=== PATIENT | female | born 1975 | race Caucasian/White ===

== ENCOUNTER → 2017-02-14 | Outpatient (CLI) | payer BC | END | disposition home or self-care (01) | LOC: C.PAPS 14:33 | PROVIDERS: ATTEND Obstetrics & Gynecology | DX: Z01.419 Encounter for gynecological examination (general) (routine) without abnormal findings (principal) ==

== ENCOUNTER → 2017-03-17 | Outpatient (CLI) | payer BC ==
--- NOTE | 2017-03-18 13:15 | MAMMOGRAPHY REPORT ---
BILATERAL DIGITAL SCREENING MAMMOGRAM TOMOSYNTHESIS WITH CAD: 03/17/2017 CLINICAL HISTORY: Routine screening. Patient has no complaints. TECHNIQUE: Breast tomosynthesis in addition to standard 2D mammography was performed. Current study was also evaluated with a Computer Aided Detection (CAD) system. COMPARISON: Comparison is made to exams dated: 03/13/2016 mammogram, 03/09/2015 mammogram, and 006 mammogram - [facility]. BREAST COMPOSITION: The tissue of both breasts is extremely dense, which lowers the sensitivity of mammography. FINDINGS: The parenchymal pattern is unchanged. There is a stable benign appearing calcification a nteriorly within the left breast. No developing mass, architectural distortion or cluster of suspic ious microcalcifications is seen in either breast. IMPRESSION: ACR BI-RADS CATEGORY 2: BENIGN There is no mammographic evidence of malignancy. A 1 year screening mammogram is recommended. The p atient will receive written notification of the results. Approximately 10% of breast cancers are not detected with mammography. A negative mammographic repor t should not delay biopsy if a clinically suggestive mass is present. Suki Damon M.D. ay/:03/17/2017 17:08:21 Colorist Photography: [address], [facility] letter sent: Normal 1/2 BI-RADS Code: ACR BI-RADS Category 2: Benign
== END | disposition home or self-care (01) ==
LOC: C.MAMM 12:10
PROVIDERS: ATTEND Obstetrics & Gynecology
DX: Z12.31 Encounter for screening mammogram for malignant neoplasm of breast (principal)

== ENCOUNTER → 2018-02-16 | Outpatient (CLI) | payer OTHER | END | disposition home or self-care (01) | LOC: C.PAPS 11:24 | PROVIDERS: ATTEND Obstetrics & Gynecology | DX: Z01.419 Encounter for gynecological examination (general) (routine) without abnormal findings (principal) ==

== ENCOUNTER → 2018-03-18 | Outpatient (CLI) | payer OTHER ==
--- NOTE | 2018-03-18 15:24 | MAMMOGRAPHY REPORT ---
BILATERAL DIGITAL SCREENING MAMMOGRAM TOMOSYNTHESIS WITH CAD: 03/18/2018 CLINICAL HISTORY: Routine screening. Patient has no complaints. TECHNIQUE: Breast tomosynthesis in addition to standard 2D mammography was performed. Current study was also evaluated with a Computer Aided Detection (CAD) system. COMPARISON: Comparison is made to exams dated: 03/17/2017 mammogram, 03/13/2016 mammogram, 03/09/2015 ma mmogram, and 09/01/2006 mammogram - [facility]. BREAST COMPOSITION: The tissue of both breasts is extremely dense, which lowers the sensitivity of m ammography. FINDINGS: The parenchymal pattern is unchanged. No developing mass, architectural distortion or clus ter of suspicious microcalcifications is seen in either breast. Stable bilateral mammograms, without IMPRESSION: ACR BI-RADS CATEGORY 2: BENIGN 1. Stable bilateral mammograms, without mammographic evidence of malignancy. A 1 year screening mamm ogram is recommended. 2. The patient has extremely dense breasts and a family history of breast cancer. Based on personal risk factors, if her lifetime risk for developing breast cancer is at least 20%, she would qualify f or screening breast MRI, which is more sensitive than screening breast ultrasound. The patient will receive written notification of the results. Approximately 10% of breast cancers are not detected with mammography. A negative mammographic report should not delay biopsy if a clinically suggestive mass is present. Suki Damon M.D. ay/:03/18/2018 08:49:21 Dyeing Machine Back Tender: Briseida TABARES)(Jorge), [facility] letter sent: Normal 1/2 BI-RADS Code: ACR BI-RADS Category 2: Benign
== END | disposition home or self-care (01) ==
LOC: C.MAMM 08:04
PROVIDERS: ATTEND Internal Medicine
DX: Z12.31 Encounter for screening mammogram for malignant neoplasm of breast (principal); Z80.3 Family history of malignant neoplasm of breast

== ENCOUNTER → 2018-05-27 | Outpatient (CLI) | payer OTHER ==
[2018-05-27 14:18] LABS: ALBUMIN 3.7 gm/dl (3.4-5.0); ALKALINE PHOSPHATASE 61 U/L (45-117); ALT/SGPT 23 U/L (12-78); AST/SGOT 19 U/L (15-37); TOTAL PROTEIN 7.4 gm/dl (6.4-8.2)
[2018-05-27 14:37] LABS: HEMATOCRIT 38.8 % (37-47); HEMOGLOBIN 12.9 g/dL (12.0-16.0); MEAN CELL VOLUME 82.7 fL (80-100); MEAN CORPUSCULAR HEMOGLOBIN 27.5 pg (25-34); MEAN CORPUSCULAR HGB CONC 33.2 g/dl (32-36); MEAN PLATELET VOLUME 12.1 fL (7.4-10.4); PLATELET COUNT 216 K/uL (130-400); RED CELL DISTRIBUTION WIDTH CV 12.6 % (11.5-14.5); RED CELL DISTRIBUTION WIDTH SD 37.8 fL (36.4-46.3); WHITE BLOOD COUNT 5.46 K/uL (4.8-10.8)
== END | disposition home or self-care (01) ==
LOC: C.LAB 10:55
PROVIDERS: ATTEND Internal Medicine
DX: E05.90 Thyrotoxicosis, unspecified without thyrotoxic crisis or storm (principal); R94.5 Abnormal results of liver function studies

== ENCOUNTER → 2018-06-01 | Outpatient (CLI) | payer OTHER ==
[2018-06-04 19:27] LABS: TSI 502 % baseline (<140)
== END | disposition home or self-care (01) ==
LOC: C.LAB 10:11
PROVIDERS: ATTEND Internal Medicine Endocrinology, Diabetes & Metabolism
DX: E05.00 Thyrotoxicosis with diffuse goiter without thyrotoxic crisis or storm (principal)

== ENCOUNTER → 2018-06-22 | Outpatient (CLI) | payer OTHER | END | disposition home or self-care (01) | LOC: C.LAB 12:15 | PROVIDERS: ATTEND Internal Medicine Endocrinology, Diabetes & Metabolism | DX: E05.00 Thyrotoxicosis with diffuse goiter without thyrotoxic crisis or storm (principal) ==

== ENCOUNTER 2024-06-29 15:33 | Inpatient (IN) ==
[2024-06-29 15:47] VITALS: O2SAT 100
--- NOTE | 2024-06-29 16:06 | Emergency Department Note ---
Impression & Plan Palpitations, Hematuria, Anxiety ED Provider Note NAME: YENNI ESCALERA AGE: 49 SEX: F : 1975 ARRIVES VIA: Walk-In INFORMANT: Patient, Mother ED PROVIDER(S): Sarath Sifuentes MD CHIEF COMPLAINT: Anxiety, outpatient referral MEDICAL DECISION MAKING: Patient presents due to concern for mental wellness concern associated anxiety. Blood work was obtained. The patient did receive Ativan p.o. Patient's blood work shows a normal white count hemoglobin and platelet count kidney function is unremarkable. Mild hyponatremia 135. The patient's urinalysis does not show evidence of obvious infection. Blood is noted. Patient may follow-up for this as an outpatient with her PCP and/or urology. Patient was he medically cleared was seen and evaluated by psych oil field caser and referrals were made. The patient was accepted for inpatient treatment at 3 S. Discussion w/ other healthcare providers: ED case management Prior /Outside records reviewed: None Differential diagnosis: Mood disorder, infection, hypoglycemia, electrolyte abnormalities, dehydration, medication side effect among others were considered. Diagnostics, as interpreted by me: ECG: None Medical decision rules: None Imaging studies: None HPI: Patient presents due to concern for worsening anxiety. The patient states that back in March the patient started having some neck and back discomfort with associated sensory issues and this took a fair amount of time in order to obtain imaging and follow-up with orthopedics. The patient was diagnosed with disc bulge in the neck as well as in the lower back and the patient has been following with PT. Patient states that during these 9 weeks of issues and waiting for her imaging studies the patient continue to worry worry about more complicated problems. Patient states that now it is so severe that she cannot even work. 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 Patient states that she has been increasingly anxious. The patient had been taking some BuSpar twice daily and recently increased her dose to 10 mg 3 times daily and then taking Ativan 0.5 twice daily as needed. Patient states that on the Ativan seems to work. The patient was started on Zoloft 25 mg and took this the last 2 days beginning on Friday but it is not agreed with her. Patient denies any chest pains or shortness of breath. The patient does have occasional palpitations and thought maybe she had a panic attack this morning. Patient did call her PCPs office and was referred here for further evaluation and treatment. Patient denies any SI HI or AVH. Sleep and appetite have been poor. Patient denies any alcohol tobacco or drug use. Patient does not formally follow with psychiatrist or therapist at this time. PAST MEDICAL HISTORY: See Below PAST SURGICAL HISTORY: See Below SOCIAL HISTORY: See Below HOME MEDICATIONS: See Below ALLERGIES: See Below VITALS: See Below PHYSICAL EXAMINATION: GENERAL: NAD, non-toxic. Wearing glasses. EYE EXAM: Normal conjunctiva. PERRL, no anisocoria and EOM's grossly intact w/o pain. OROPHARYNX: Moist mucus membranes, grossly normal dentition. NECK: Trachea midline, no stridor. Supple, no nuchal rigidity, no adenopathy, non-tender. No signs of meningismus. FROM of the neck with good chin to chest and neck extension. LUNGS: Clear to auscultation. Normal chest wall mechanics. HEART: NSR, no MRG. ABDOMEN: Abdomen soft, non-tender, no masses, no rebound or guarding. BACK: No CVA TTP. SKIN: No rashes and no bruising. UPPER EXTREMITIES: Upper extremities are grossly normal. LOWER EXTREMITIES: Grossly normal, no edema. NEURO EXAM: A&O x3, cranial nerves II-XII grossly intact, normal speech, moves all 4 extremities. Psych: Denies SI HI or AVH. Anxious and tearful. Past Med/Surg History Problem List (Updated 06/30/24 @ 00:14 by Sarath Sifuentes MD) Anxiety (Acute) Hematuria (Acute) Low back pain Numbness and tingling of right arm Neck pain Vitamin D deficiency Chronic kidney disease Palpitations (Acute) Abnormal echocardiogram Colon cancer screening Encounter for pre-operative examination Medical History Anemia Temporomandibular joint disorder hx of; had a bite block but no longer uses History of anesthesia reaction had difficulty waking after wisdom tooth removal and woke up with a sweat Hyperthyroidism hx of; pt states she is no longer on medication Surgical History H/O wisdom tooth extraction Hx of tonsillectomy and adenoidectomy H/O excision of ganglion cyst x2 H/O breast biopsy fine needle on left 2006--benign Family History Mother Osteoporosis Breast cancer GERD (gastroesophageal reflux disease) Thyroid disease Grandmother (Maternal) Dementia Father Hypercholesterolemia Hypertension Thyroid disease Uncle Thyroid disease Other No family history of adverse response to anesthesia Social History Smoking Status: Never smoker Second Hand Exposure: No; Do You Dip or Chew Tobacco: No; Hx Alcohol Use: No Hx Substance Use: No Preferred Language: Upper Sorbian Communication Ability: Effective Clarification Operator Required: No Beliefs That Will Affect Care: None marital status: Single Current Living Situation: Alone Feels Safe at Home: Yes Gender Identity: Female Assistive Devices: Glasses Allergies Allergies Allergy/AdvReac Type Severity Reaction Status Date / Time cefaclor [From Ceclor] Allergy Intermediate Hives Verified 02/03/24 14:12 azithromycin Allergy Mild Rash Verified 02/03/24 14:12 erythromycin base Allergy Mild Rash Verified 02/03/24 14:12 minocycline Allergy Mild Rash Verified 02/03/24 14:12 Penicillins Allergy Mild Rash Verified 02/03/24 14:12 multiple vitamin AdvReac Mild Gastrointestinal Uncoded 02/03/24 14:12 Upset contrast dye AdvReac Unknown Itching Uncoded 06/29/24 17:11 Home Meds Home Medications Medication Instructions Recorded Confirmed cholecalciferol (vitamin D3) 25 25 mcg PO QAM 01/21/23 06/29/24 mcg (1,000 unit) tablet (Vitamin D3) ferrous sulfate 325 mg (65 mg 325 mg PO QPM 01/21/23 06/29/24 iron) tablet (Iron (ferrous sulfate)) ibuprofen 200 mg tablet (Advil) 200 mg PO Q6H PRN pain 05/03/24 06/29/24 buspirone 10 mg PO TID 06/29/24 06/29/24 lorazepam 0.5 mg tablet 0.5 mg PO BID PRN Anxiety 06/29/24 06/29/24 Previous Rx's Medication Instructions Recorded pantoprazole 40 mg tablet,delayed 40 mg PO DAILY #14 tabs 05/18/24 release (Protonix) hydroxyzine HCl 25 mg tablet 25 mg PO Q6H PRN anxiety #10 tabs 05/26/24 Results & Data (ED) Vital Signs Vital Signs - 24 hr 06/29/24 15:42 06/29/24 16:08 06/29/24 18:50 Temperature 36.9 C Temperature Source Temporal Artery Scan Pulse Rate 87 Pulse Rate [Finger] 76 64 Pulse Rhythm Regular Pulse Strength Normal Respiratory Rate 20 18 18 Respiratory Effort / Characteristics Non-Labored Spontaneous Respiratory Depth Normal Blood Pressure 170/85 H Blood Pressure [Right Arm] 145/99 H 142/90 H Blood Pressure Mean 113 Blood Pressure Mean [Right Arm] 114 107 Pulse Oximetry 100 100 100 Oxygen Delivery Method Room Air Room Air Room Air Sepsis Recent Fever Within 48 Hours No Sepsis New/Unexplained Change in Mental Status No Sepsis Action Taken by Nursing No Action Required Home Medications Current Medication List: was personally reviewed by me Laboratory Data Attestation: I reviewed the patient's lab results. 06/29/24 16:00 06/29/24 16:00 Lab Results 06/29/24 Range/Units 16:00 WBC 5.55 (4.8-10.8) K/ul RBC 4.83 (4.20-5.40) M/uL Hgb 13.8 (12.0-16.0) g/dl Hct 41.7 (37.0-47.0) % MCV 86.3 (80.0-100.0) fL MCH 28.6 (25.0-34.0) pg MCHC 33.1 (32.0-36.0) g/dL RDW Std Deviation 36.2 L (36.4-46.3) fL RDW Coeff of Lore 11.4 L (11.5-14.5) % Plt Count 228 (130-400) K/uL MPV 12.6 H (9.4-12.4) fL Immature Gran % (Auto) 0.2 % Neut % (Auto) 76.9 % Lymph % (Auto) 15.9 % [place] % (Auto) 6.3 % Eos % (Auto) 0.2 % Baso % (Auto) 0.5 % Neut # (Auto) 4.27 (1.40-6.50) K/uL Lymph # (Auto) 0.88 L (1.20-3.40) K/uL [place] # (Auto) 0.35 (0.11-0.59) K/uL Eos # (Auto) 0.01 (0.00-0.50) K/uL Baso # (Auto) 0.03 (0.00-0.20) K/uL Immature Gran # (Auto) 0.01 (0.01-0.20) K/uL Sodium 135 L (136-145) mmol/L Potassium 3.6 (3.5-5.1) mmol/L Chloride 100 (98-107) mmol/L Carbon Dioxide 27 (21-32) mmol/L Anion Gap 8 (3-11) BUN 15 (6-23) mg/dl Creatinine 1.03 (0.6-1.2) mg/dl Est Cr Clr Drug Dosing 51.0 ml/min Est GFR ( Amer) 73.9 ml/min Est GFR (Non-Af Amer) 63.8 ml/min BUN/Creatinine Ratio 14.6 (10-20) Glucose 131 H (70-99(Fasting)) mg/dl Calcium 9.3 (8.6-10.3) mg/dl Total Bilirubin 0.7 (0.2-1.0) mg/dl AST 17 (13-39) U/L ALT 11 (7-52) U/L Alkaline Phosphatase 46 (34-104) U/L Total Protein 7.6 (6.0-8.3) gm/dl Albumin 4.8 (3.4-5.0) gm/dl Globulin 2.8 (2.5-4.0) gm/dl Albumin/Globulin Ratio 1.7 (0.9-2) TSH 1.486 (0.300-4.500) uIu/ml Salicylates < 3.0 L (3.0-30) mg/dl Acetaminophen < 3 L (10-30) ug/ml Ethyl Alcohol mg/dL < 10.0 (<10.0) mg/dl Administered Medications Buspirone HCl (Buspirone 5 Mg Tab) 10 mg PO TID TATUM Stop: 07/29/24 20:59 Last Admin: 06/29/24 21:02 Dose: 10 mg Documented By: VDS Lorazepam (Lorazepam 1 Mg Tab) 1 mg PO BID PRN PRN Reason: Anxiety Stop: 07/29/24 20:16 Last Admin: 06/29/24 21:05 Dose: 1 mg Documented By: VDS Discontinued Medications Lorazepam (Lorazepam 0.5 Mg Tab) 0.5 mg PO NOW STA Stop: 06/29/24 16:28 Last Admin: 06/29/24 16:41 Dose: 0.5 mg Documented By: KV Discharge Plan Visit Data Chief Complaint: Mental Health Evaluation Stated Complaint: MENTAL HEALTH EVAL ED Provider: Sarath Sifuentes Discharge Problem: Palpitations, Hematuria, Anxiety Patient Disposition: Admitted As Inpatient Discharge Instructions Interventions: ED Discharge Assessment Last Done: 06/29/24 20:04 Discharge Problem: Hematuria Qualifiers: Hematuria type: unspecified type Qualified Code(s): R31.9 - Hematuria, unspecified
[2024-06-29] MEDS: LORazepam 0.5 MG TAB PO STA (16:41)
[2024-06-29 17:01] LABS: Basophils # (auto) 0.03 K/uL (0.00-0.20); Basophils % (auto) 0.5 %; Eosinophils # (auto) 0.01 K/uL (0.00-0.50); Eosinophils % (auto) 0.2 %; Hematocrit (blood only) 41.7 % (37.0-47.0); Hemoglobin 13.8 g/dl (12.0-16.0); Immature Granulocytes # (auto) 0.01 K/uL (0.01-0.20); Immature Granulocytes % (auto) 0.2 %; Lymphocytes # (auto) 0.88 K/uL (1.20-3.40); Lymphocytes % (auto) 15.9 %; Mean Corpuscular Hemoglobin 28.6 pg (25.0-34.0); Mean Corpuscular Hgb Conc 33.1 g/dL (32.0-36.0); Mean Corpuscular Volume 86.3 fL (80.0-100.0); Mean Platelet Volume 12.6 fL (9.4-12.4); Monocytes # (auto) 0.35 K/uL (0.11-0.59); Monocytes % (auto) 6.3 %; Neutrophils # (auto) 4.27 K/uL (1.40-6.50); Neutrophils % (auto) 76.9 %; Platelet Count 228 K/uL (130-400); RDW Coefficient of Variation 11.4 % (11.5-14.5); RDW Standard Deviation 36.2 fL (36.4-46.3); Red Blood Count 4.83 M/uL (4.20-5.40); White Blood Count 5.55 K/ul (4.8-10.8)
[2024-06-29 17:02] LABS: Appearance Urine Clear (Clear); Bacteria Urine Automated None Seen (None Seen); Bilirubin Urine Negative (Negative); Blood Urine 3+ (Negative); Cast Urine Automated 0-2 /lpf (0-2); Color Urine Yellow; Epithelial Cell Urine Auto 0-2 /hpf (0-2); Glucose Urine UA Negative (Negative); Ketones Urine Negative (Negative); Leukocyte Esterase Urine Trace (Negative); Nitrite Urine Negative (Negative); Pregnancy Test, Urine Negative (Negative); Protein Urine Trace (Negative); RBC Urine Automated >20 /hpf (0-2); Specific Gravity Urine 1.011 (1.000-1.030); Urobilinogen Urine Negative (Negative); WBC Urine Automated 0-5 /hpf (0-5); pH Urine 5.5 (4.5-7.5)
[2024-06-29 17:11] LABS: Albumin Globulin Ratio 1.7 (0.9-2); Albumin Level 4.8 gm/dl (3.4-5.0); BUN Creatinine Ratio 14.6 (10-20); Bilirubin,Total 0.7 mg/dl (0.2-1.0); Calcium 9.3 mg/dl (8.6-10.3); Est GFR (African American) 73.9 ml/min; Est GFR (Non-African American) 63.8 ml/min; Globulin 2.8 gm/dl (2.5-4.0); Potassium 3.6 mmol/L (3.5-5.1); Total Protein 7.6 gm/dl (6.0-8.3)
[2024-06-29 17:25] LABS: Thyroid Stimulating Hormone 1.486 uIu/ml (0.300-4.500)
[2024-06-29 17:38] LABS: Acetaminophen < 3 ug/ml (10-30); Salicylate < 3.0 mg/dl (3.0-30)
[2024-06-29 17:54] LABS: Amphetamines+Metham, Urine Neg (Neg); Barbiturates, Urine Neg (Neg); Benzodiazepine, Urine Neg (Neg); Cocaine, Urine Neg (Neg); Fentanyl, Urine Neg (Neg); MDMA (Ecstacy), Urine Neg (Neg); Marijuana, Urine Neg (Neg); Methadone, Urine Neg (Neg); Opiate, Urine Neg (Neg); Phencyclidine, Urine Neg (Neg)
[2024-06-29] MEDS ORDERED: hydrOXYzine HCl 25 MG TAB PO PRN ×2 (20:14)
[2024-06-29] MEDS ORDERED: SODIUM CHLORIDE 0.65% NA SOLN 45 ML (OCEAN) PRN (20:14)
[2024-06-29] MEDS ORDERED: BISMUTH SUBSALICYLATE LIQD 236 ML PO PRN (20:14)
[2024-06-29] MEDS ORDERED: ACETAMINOPHEN 325 MG TAB PO PRN (20:14)
[2024-06-29] MEDS ORDERED: ALUMINUM/MAGNESIUM SUSP 30 ML UDC PO PRN (20:14)
[2024-06-29] MEDS ORDERED: MAGNESIUM HYDROXIDE SUSP 30 ML UDC PO PRN (20:14)
[2024-06-29] MEDS: busPIRone 5 MG TAB PO SCH (21:02)
[2024-06-29] MEDS: LORazepam 1 MG TAB PO PRN (21:05)
[2024-06-30 06:49] VITALS: RESP 16
--- OUTSIDE RECORDS SUMMARY | 2024-06-30 07:04 | External Medical Summary | Summary of Care ---
Author Name Unknown Organization [facility] Address [address] [place] [address] Phone [phone] Care Team Providers Care Rn Outpatient Surgery Name Role Phone Wilda St MD Primary Care Provider + Reason for Visit * Reason Onset Date Comments Advice 05/31/2024 Encounter Details Date Type Department Care Team (Late st Contact Info) Description 05/31/2024 Telephone General Internal Medicine [facility] [address] [place] [id number] MD [address] [place] [address] Advice Allergies Active Allergy Reactions Criticality Noted Date Comments Azithromycin Nausea/vomiting 09/05/2015 z-pack Cefaclor Hives 09/05/2015 Dust 09/05/2015 Mold, ragweed, pollen Erythromycin 09/05/2015 unsure Minocycline Other (Please comment) 09/05/2015 Per patient all "cyclines"; caused elevated liver enzymes, fever, eye problems Multivitamins Nausea/vomiting 09/05/2015 Penicillins Hives 09/05/2015 documented as of this encounter (statuses as of 06/14/2024) Medications Medication Sig Dispensed Refills Start Date End Date Status Cholecalciferol (VITAMIN D) 1000 UNIT Capsule Take 1 Capsule by mouth in the morning. 30 Cap 11 09/05/2015 Active hydrOXYzine HCl 25 MG Oral Tablet 1 Tablet. 05/26/2024 Active ALPRAZolam 0.5 MG Oral Tablet (xaNAX) 1 Tablet. 05/05/2024 Active busPIRone HCl 5 MG Oral Tablet (Buspar)Indicatio ns:DONNA (generalized anxiety disorder) Take 1 Tablet by mouth in the morning and 1 Tablet before bedtime. 60 Tablet 3 05/28/2024 Active Pantoprazole Sodium 20 MG Oral Tablet Delayed Release (Protonix)Indicat ions:Gastroesopha geal reflux disease without esophagitis Take 1 Tablet by mouth in the morning. 30 minutes before the first meal of the day. Do not crush, split or chew the tablet. 30 Tablet 5 05/28/2024 Active Ondansetron HCl 4 MG Oral TabletIndications :Nausea Take 1 Tablet by mouth every 8 hours as needed for Nausea. 30 Tablet 05/31/2024 Active LORazepam 0.5 MG Oral Tablet (Ativan)Indicatio ns:Panic attack Take 1 Tablet by mouth 2 times a day as needed for Anxiety. Dose increased temporarily . Due on 06/02/24 20 Tablet 05/31/2024 Active LORazepam 0.5 MG Oral Tablet (Ativan)Indicatio ns:Panic attack Take 0.5 Tablets by mouth daily as needed for Anxiety. 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/2015 documented as of this encounter (statuses as of 06/14/2024) Immunizations Name Administration Dates Next Due COVID-19 mRNA, LNP-s, No Pre serve, 2-Dose Series (3Leaf) 01/26/2021,01/05/2021 COVID-19, LNP-s, No Preserve , Ben-sucrose, Ages 12+ (Pfizer) 07/31/2022,09/12/2021 TDAP (age 10 and older)(Boostrix) 09/05/2015 documented as of this encounter Social History Tobacco Use Types Packs/Day Years Used Date Smoking Tobacco: Never Smokeless Tobacco: Never Alcohol Use Standard Drinks/Week Comments Yes 0 (1 standard drink = 0.6 oz pur e alcohol) rarely socially PHQ-2 Answer Date Recorded PHQ-2 Score 0 07/19/2019 Hunger Vital Sign Answer Date Recorded Worried About Running Out of Food in the Last Ye ar Never true 07/19/2019 Ran Out of Food in the Last Year Never true 07/19/2019 Utilities Answer Date Recorded Do you have trouble paying y our heating, water, or electric bill? (Adult - for ages 18 years and over) Not on file 2024 Is your family able to pay t he heat, water, or electric bill? (Household - for ages 0-17 years) Not on file 2024 Does your family have access to good internet? (Household - for ages 0-17 years) Not on file 2024 Social Connections Answer Date Recorded How often do you feel lonely or isolated from those around you? (Adult - for ages 18 years and over) Not on file 2024 Sex and Gender Information Value Date Recorded Sex Assigned at Female 01/18/2020 8:34 AM EDT Gender Identity Female 01/18/2020 8:34 AM EDT Sexual Orientation Straight 01/18/2020 8: 34 AM EDT Job Start Date Occupation Industry Not on file Not on file Not on file documented as of this encounter Miscellaneous Notes * Telephone Encounter - Comfort Brambila OSA - 06/14/2024 5:10 PM EDT Reason for patient's call: Patient requesting to speak with nurse about medication Caller was transferred to [place] at the nurse line. * Telephone Encounter - Charisse Conte MED ASSIST - 06/14/2024 10:17 AM EDT Not a pt of Dr Nevarez * Telephone Encounter - Annita Rock OSA - 06/14/2024 8:03 AM EDT Pt calling in about these medications, would like to speak to nurse, doesn't think the one med is working yet, and the other one she decreased the Lorazepam and is feeling worse and up all night. Pt would like to speak to a nurse regarding adjustments. Pt states she had palpitations on Friday natalia and didn't want to eat, and was up all night. Still felt awful on Friday, back to full dose on Friday because she felt so bad. Will start RED FLAG to Nurse Triage. * Telephone Encounter - Sivan Kenny LPN - 06/01/2024 8:38 AM EDT Patient aware and verbalized understanding, will comply * Addendum Note - Dasia Meyers MD - 05/31/2024 4:36 PM EDTAddended by: DASIA MEYERS on: 05/31/2024 04:36 PM Modules accepted: Orders * Telephone Encounter - Dasia Meyers MD - 05/31/2024 4:34 PM EDT I have reviewed the patients controlled substance dispensing history in the Prescription Drug Monitoring Program in compliance with the [facility] regulations before prescribing a controlled substance. Sent to be filled on 06/02/24 Can take 0.5 mg Lorazepam twice a day on top of Buspar 3 times a day until 1 week or until Buspar stats to work then keep that 1/2 tab and then only as needed * Telephone Encounter - Wilda St MD - 05/31/2024 4:28 PM EDT Pt seen recently by Dr. Meyers for recent recommendation. Forwarding for clarification. Thanks. * Telephone Encounter - Sivan Kenny LPN - 05/31/2024 3:47 PM EDT Patient aware and verbalized understanding. Pt asking for clarification, it is ok to take one whole tab of Lorazepam 0.5 mg? She is inquiring if she can get a new RX for lorazepam? She has 7 full tabs left, this would only last her 3 more daysif she uses it twice daily. Pt also inquiring if she can get nausea medication? Please advise. * Telephone Encounter - Caitlyn Perez LPN - 05/31/2024 3:38 PM EDT Left message of info, and call back number if patient is interested in calling back. * Telephone Encounter - Dasia Meyers MD - 05/31/2024 3:32 PM EDT Yes can take buspar 3 times a day * Telephone Encounter - Caitlyn Perez LPN - 05/31/2024 2:02 PM EDT Started the buspar on Friday in morning and then took in evening. Friday took 3 times.(Morning, 2pm and 9pm) Started Lorazepam on Friday took 0.5 did not help with palpitations. Patient still having heart palpitations, pt still feeling anxious. Patient is asking what she should do in the middle of the day, states that the lorazepam wears off after a few hours Patient states yesterday took buspar 3 times a day and it seemed to help? Can she continue to take 3 times a day? * Telephone Encounter - Dayana Fernández LPN - 05/31/2024 11:17 AM EDT Pt is calling and reports that today she does not feel very good. Her GI tract is "screwy". Started Buspirone 5 mg BID Friday. Pt asked for me to hold, then pt's mother Vicki got on the phone and stated that the pt had to lay down due to felling sick. Feels nauseated. Has heart palpitations. Denies chest pain. Took Lorazepam 0.5 mg at 10 AM. Took Buspirone at 8:30 AM Reports that the Buspirone does not seem to help and the Lorazepam is not helping at all. States that the pt is very anxious and is not sleeping. Is wondering if the medication is causing the pt's nausea and would like to know if the pt should continue the Buspirone? Please advise. * Telephone Encounter - Mariam Hdz OSA - 05/31/2024 11:14 AM EDT Reason for patient's call: Pt calling in to discuss her new medications, was advised to speak with nurse during OV if there were any complications Caller was transferred to [facility] at the nurse line. documented in this encounter Plan of Treatment Upcoming Encounters Date Type Department Care Team (Late st Contact Info) Description 07/22/2024 6:00 PM EDT Office [facility] [place] [address] [place] [address] Dasia Meyers MD [address] [place] [address] 09/23/2024 9:20 AM EST Office Visit General Internal Medicine [place] Erin Beebe [address] [place] [id number] MD [address] [place] [id number] Health Maintenance Due Date Last Done Comments Hepatitis B Vaccine (1 of 3 - 19+ 3-dose series) 1994 HPV/Co-Test 2005 Cologuard 2020 Sigmoidoscopy 2020 Fecal Occult Blood Test 08/09/2020 08/09/2019 Depression Screening 07/20/2021 07/20/2020 COVID-19 Vaccine ( season) 2023 07/31/2022, 07/31/2022, 09/12/2021, Additional history exists Cervical Cancer Screening 04/12/2024 Pap Smear 04/12/2024 04/12/2021, 02/01, 02/14/2017, Additional history exists Influenza Vaccine (FLU shot) (#1) 2024 GFR 10/01/2024 03/31/2024, 01/02, 11/06/2022, Additional history exists Albumin/Creatinine Ratio 01/28/2025 01/29/2024 CKD HGB USE SMARTSET 52905 01/28/202501/28, 11/19/2022, 09/10/2022, Additional history exists CKD PHOS USE SMARTSET 44039 03/31/2025 03/31/2024, 0 11/06/2022 Mammogram 04/16/2025 04/16/2024, 06/0 06/2023, 04/04/2022, Additional history exists DTaP,Tdap,and Td Vaccines (2 - Td or Tdap) 09/05/2025 09/05/2015 Lipid Panel 01/28/2029 01/29/2024, 08/04, 08/16/2014 Colonoscopy 02/03/2033 02/03/2023 Colorectal Cancer Screening 02/03/2033 HPV (Gardasil) Vaccine Aged Out No lo nger eligible based on patient's age to complete this topic MENINGOCOCCAL (MENACTRA/MENVEO) Aged Out No longer eligible based on patient's age to complete this topic Pneumococcal Vaccine: Pediatrics (0 to 5 Years) and At-Risk Patients (6 to 64 Years) Aged Out No longer eligible based on patient's age to complete this topic documented as of this encounter Medical Devices Not on filedocumented as of this encounter Visit Diagnoses Diagnosis Nausea- Primary Nausea alone Panic attack Panic disorder without agoraphobia documented in this encounter Care Teams Rn Outpatient Surgery Relationship Specialty Start Date End Date St, Wilda Maximiliano, MD [address] [place] [address] PCP - General Internal Medicine 07/31/21 documented as of this encounter
--- OUTSIDE RECORDS SUMMARY | 2024-06-30 07:04 | External Medical Summary | Summary of Care ---
Author Name Unknown Organization [facility] Address [address] [place] [address] Phone [phone] Care Team Providers Care Final Rail Cutter Name Role Phone Wilda St MD Primary Care Provider + Reason for Visit * Reason Onset Date Comments Advice 05/31/2024 Encounter Details Date Type Department Care Team (Late st Contact Info) Description 05/31/2024 Telephone General Internal Medicine [facility] [address] [place] [address] MD [address] [place] [address] Advice Allergies Active Allergy Reactions Criticality Noted [...] mRNA, LNP-s, No Pre serve, 2-Dose Series (Get10) 01/26/2021,01/05/2021 COVID-19, LNP-s, No Preserve , Ben-sucrose, [...] encounter Miscellaneous Notes * Telephone Encounter - Charisse Conte MED [...] Drug Monitoring Program in compliance with the [facility] regulations before prescribing a controlled substance. Sent [...] were any complications Caller was transferred to [facility] at the nurse line. documented in this encounter Plan of Treatment Upcoming Encounters Date Type Department Care Team (Late st Contact Info) Description 07/22/2024 6:00 PM EDT Office Visit General Internal Medicine [facility] [address] [place] [address] Dasia Meyers MD 200 [facility] [place] [address] 09/23/2024 9:20 AM EST Office Visit General Internal Medicine [facility] [address] [place] [address] MD 200 [facility] [place] [address] Health Maintenance Due Date Last Done Comments [...] Ratio 01/28/2025 01/29/2024 CKD HGB USE SMARTSET 73995 01/28/202501/28, 11/19/2022, 09/10/2022, Additional history exists CKD PHOS USE SMARTSET 82697 03/31/2025 03/31/2024, 0 11/06/2022 Mammogram 04/16/2025 04/16/2024, 0606/2023, 04/04/2022, Additional history exists DTaP,Tdap,and Td Vaccines [...] agoraphobia documented in this encounter Care Teams Final Rail Cutter Relationship Specialty Start Date End Date Wilda St MD [address] [place], [place] [address] PCP - General Internal Medicine 07/31/21 documented as of this encounter
--- OUTSIDE RECORDS SUMMARY | 2024-06-30 07:04 | External Medical Summary | Summary of Care ---
Author Name Unknown Organization [facility] Address [address] [place] [address] Phone [phone] Care Team Providers Care Document Improvement Specialist Name Role Phone Wilda St MD Primary Care Provider + Reason for Visit * Reason Onset Date Comments Advice 06/17/2024 Encounter Details Date Type Department Care Team (Late st Contact Info) Description 06/17/2024 Telephone General Internal Medicine [facility] 200 [facility] [place] [address] MD [address] [facility] [place] [address] Advice Allergies Active Allergy Reactions Criticality Noted Date Comments Azithromycin Nausea/vomiting 09/05/2015 z-pack Cefaclor Hives 09/05/2015 Dust 09/05/2015 Mold, ragweed, pollen Erythromycin 09/05/2015 unsure Minocycline Other (Please comment) 09/05/2015 Per patient all "cyclines"; caused elevated liver enzymes, fever, eye problems Multivitamins Nausea/vomiting 09/05/2015 Penicillins Hives 09/05/2015 documented as of this encounter (statuses as of 06/17/2024) Medications Medication Sig Dispensed Refills Start Date End Date Status Cholecalciferol (VITAMIN D) 1000 UNIT Capsule Take 1 Capsule by mouth in the morning. 30 Cap 11 09/05/2015 Active hydrOXYzine HCl 25 MG Oral Tablet 1 Tablet. 05/26/2024 Active ALPRAZolam 0.5 MG Oral Tablet (xaNAX) 1 Tablet. 05/05/2024 Activ e busPIRone HCl 5 MG Oral Tablet (Buspar)Indications :DONNA (generalized anxiety disorder) Take 1 Tablet by mouth in the morning and 1 Tablet before bedtime. 60 Tablet 3 05/28/2024 Active Pantoprazole Sodium 20 MG Oral Tablet Delayed Release (Protonix)Indicatio ns:Gastroesophageal reflux disease without esophagitis Take 1 Tablet by mouth in the morning. 30 minutes before the first meal of the day. Do not crush, split or chew the tablet. 30 Tablet 5 05/28/2024 Active Ondansetron HCl 4 MG Oral TabletIndications:N ausea Take 1 Tablet by mouth every 8 hours as needed for Nausea. 30 Tablet 05/31/2024 Active LORazepam 0.5 MG Oral Tablet (Ativan)Indications :Panic attack Take 1 Tablet by mouth 2 times a day as needed for Anxiety. Dose increased temporarily . 30 Tablet 06/15/2024 Active documented as of this encounter (statuses as of 06/17/2024) Active Problems Problem Noted Date Diagnosed Date Chronic kidney disease, stage 3a 05/14/2021 Overview: Per CKD protocol Iron deficiency anemia 01/18/2020 Hyperthyroidism 03/17/2018 Autoimmune thyroiditis 09/05/2015 documented as of this encounter (statuses as of 06/17/2024) Immunizations Name Administration Dates Next Due COVID-19 mRNA, LNP-s, No Pre serve, 2-Dose Series (SaaSAssurance) 01/26/2021,01/05/2021 COVID-19, LNP-s, No Preserve , Ben-sucrose, [...] encounter Miscellaneous Notes * Telephone Encounter - Maira Chen MED ASSIST - 06/17/2024 1:21 PM EDT Patient called and informed of results below. Verbalized understanding and will follow instructionsas advised by provider. * Telephone Encounter - Maira Chen MED ASSIST - 06/17/2024 1:19 PM EDT ----- Message from Wilda St MD sent at 06/17/2024 9:03 AM EDT ----- Please inform the patient that her recent Zio monitor came back negative for any arrhythmia which is good news. Keep scheduled appointment and continue hydration. documented in this encounter Plan of Treatment Upcoming Encounters Date Type Department Care Team (Late st Contact Info) Description 06/23/2024 8:00 AM EDT Office Visit General Internal Medicine [facility] [address] [place], [place] [address] MD [address] [place] [address] 07/22/2024 6:00 PM EDT Office Visit General Internal Medicine [facility] [place] [address] [facility] [address] [place], [place] [address] Monik Meyers MD [address] [facility] [place], [place] [address] 09/23/2024 9:20 AM EST Office Visit General Internal Medicine [facility] [place] [facility] [place] [address] MD [address] [facility] [place], [place] [address] Health Maintenance Due Date Last Done Comments [...] Ratio 01/28/2025 01/29/2024 CKD HGB USE SMARTSET [id number] 01/28/202501/28, 11/19/2022, 09/10/2022, Additional history exists CKD PHOS USE SMARTSET 72581 03/31/2025 03/31/2024, 0 11/06/2022 Mammogram 04/16/2025 04/16/2024, 06/2023, 04/04/2022, Additional history exists DTaP,Tdap,and Td [...] Not on filedocumented as of this encounter Care Teams Document Improvement Specialist Relationship Specialty Start Date End Date Wilda St MD [address] [place] [address] PCP - General Internal Medicine 07/31/21 documented as of this encounter
--- OUTSIDE RECORDS SUMMARY | 2024-06-30 07:04 | External Medical Summary | Summary of Care ---
Author Name Unknown Organization [facility] Address [address] [place] [address] Phone [phone] Care Team Providers Care Book Illustrator Name Role Phone Wilda St MD Primary Care Provider + Reason for Visit * Reason Onset Date Comments Advice 06/24/2024 Encounter Details Date Type Department Care Team (Late st Contact Info) Description 06/24/2024 Telephone General Internal Medicine [facility] 200 [facility] [place] [address] MD 200 [facility] [place] [address] Advice Allergies Active Allergy Reactions Criticality Noted Date Comments Azithromycin Nausea/vomiting 09/05/2015 z-pack Cefaclor Hives 09/05/2015 Dust 09/05/2015 Mold, ragweed, pollen Erythromycin 09/05/2015 unsure Minocycline Other (Please comment) 09/05/2015 Per patient all "cyclines"; caused elevated liver enzymes, fever, eye problems Multivitamins Nausea/vomiting 09/05/2015 Penicillins Hives 09/05/2015 documented as of this encounter (statuses as of 06/25/2024) Medications Medication Sig Dispensed Refills Start Date End Date Status Cholecalciferol (VITAMIN D) 1000 UNIT Capsule Take 1 Capsule by mouth in the morning. 30 Cap 11 09/05/2015 Active Pantoprazole Sodium 20 MG Oral Tablet [...] needed for Nausea. 30 Tablet 05/31/2024 Active Additional Information Patient not taking.Reported on 06/23/2024 Sertraline HCl 25 MG Oral Tablet (Zoloft)Indicatio ns:DONNA (generalized anxiety disorder) One pill at bedtime. 30 Tablet 5 06/23/2024 Active LORazepam 0.5 MG Oral Tablet (Ativan)Indicatio ns:Panic attack Take 1 Tablet by mouth 2 times a day as needed for Anxiety. Dose increased temporarily . 30 Tablet 06/24/2024 Active busPIRone HCl 10 MG Oral Tablet (Buspar)Indicatio ns:DONNA (generalized anxiety disorder) Take 1 Tablet by mouth in the morning and 1 Tablet at noon and 1 Tablet before bedtime. 90 Tablet 3 06/24/2024 Active LORazepam 0.5 MG Oral Tablet (Ativan)Indicatio ns:Panic attack Take 1 Tablet by mouth 2 times a day as needed for Anxiety. Dose increased temporarily . 30 Tablet 06/15/2024 4 Discontinue d(Refill) busPIRone HCl 10 MG Oral Tablet (Buspar)Indicatio ns:DONNA (generalized anxiety disorder) Take 1 Tablet by mouth in the morning and 1 Tablet before bedtime. 60 Tablet 3 06/23/2024 4 Discontinue d(Medicatio n/Dose Changed) documented as of this encounter (statuses as of 06/25/2024) Active Problems Problem Noted Date Diagnosed Date Chronic kidney disease, stage 3a 05/14/2021 Overview: Per CKD protocol Iron deficiency anemia 01/18/2020 Hyperthyroidism 03/17/2018 Autoimmune thyroiditis 09/05/2015 documented as of this encounter (statuses as of 06/25/2024) Immunizations Name Administration Dates Next Due COVID-19 mRNA, LNP-s, No Pre serve, 2-Dose Series (TickPick) 01/26/2021,01/05/2021 COVID-19, LNP-s, No Preserve , Ben-sucrose, Ages 12+ (TickPick) 07/31/2022,09/12/2021 TDAP (age 10 and older)(Boostrix) 09/05/2015 [...] encounter Miscellaneous Notes * Telephone Encounter - Perla Jones MED ASSIST - 06/25/2024 10:17 AM EDT Detailed message left on patient's self identifying voice mail. * Telephone Encounter - Wilda St MD - 06/24/2024 4:52 PM EDT Noted. Script for lorazepam sent. New script for BuSpar on to take 10 10 mg tablet 3 times a day sent to the pharmacy. * Telephone Encounter - Christopher Santoyo CMA - 06/24/2024 3:21 PM EDT Pt agreeable to increase to 3xs a day for buspar. She also said that she tried to not taking the lorazepam last night and she was unable to sleep. Stated she intends to use it for sleep but also needs it in the morning sometimes so she might go overthe 30 tablets. Currently has enough for 5 days, refill pended. Did you pend patient's preferred pharmacy and medication before forwarding?yes Pharmacy: [email or web address] [address] [place] [address] Pending Prescriptions: Disp Refills LORazepam 0.5 MG Oral Tablet (Ativan) 30 Tab*0 Sig: Take 1 Tablet by mouth 2 times a day as needed for Anxiety. Dose increased temporarily . Last Visit: 06/23/2024 (in office), Visit date not found (telemedicine) Next Visit: 07/27/2024 If no future appointments scheduled, and last appointment is greater than a year ago, please schedule patient for a follow-up appointment Last date the medication was ordered: 06.15.2024 Is this request for a controlled substance?No Urine Drug Screen:No results found for this or any previous visit. Patient Phone Numbers Labs: Lab Results Component Value Date/Time CREAT 1.04 (A) 03/31/2024 12:00 AM CREAT 0.9 03/09/2018 09:33 AM POTASSIUM 4.2 03/31/2024 12:00 AM POTASSIUM 4.4 03/09/2018 09:33 AM TSH 2.59 03/23/2024 12:00 AM TSH <0.01 (L) 03/13/2018 08:30 AM LDLCALC 142 (H) 01/29/2024 12:00 AM ALT 20 04/23/2021 12:00 AM ALT 30 03/09/2018 09:33 AM * Telephone Encounter - Wilda St MD - 06/24/2024 2:35 PM EDT Continue Zoloft 25 mg orally once a day Continue BuSpar on 10 mg orally twice a day and if she has no side effects we can even increase thedosage to 10 mg 3 times a day. If she says yes let me know and I can send a new prescription with ahigher dosage. Continue lorazepam 1 to 2 times a day as needed for panic attacks or significant anxiety if still has symptoms despite taking above medications. Remind her to make an appointment with a psychologist as we discussed yesterday at the office visit. * Telephone Encounter - Kelly Nagel LPN - 06/24/2024 10:32 AM EDT Patient calling, she saw PCP on 06/23. Med changes made - Buspar 10mg BID and Lorazepam 0.5mg. She did take Lorazepam 0.5mg at 4pm yesterday and only the Buspar 10mg at bed time. Unable to sleep, experienced palpitations last night. This morning she took the Buspar 10mg at 0900 without the Lorazepam. Feeling on edge and general malaise. Denies palpitations. The Buspar isn't lasting more than 4-5 hours at a time. Lorazepam is to be taking only as needed now. Please advise how you would like the patient to proceed. Starting Zoloft 25mg at bedtime on Friday as directed. She understands it will take approximately 4weeks to see benefits. documented in this encounter Plan of Treatment Upcoming Encounters Date Type Department Care Team (Late st Contact Info) Description 07/27/2024 2:40 PM EDT Office Visit General Internal Medicine [facility] [place] [address] [place] [address] MD [address] [place] [address] 09/23/2024 9:20 AM EST Office Visit General Internal Medicine [place] [facility] [address] [place] [address] MD [address] [place] [address] Health Maintenance Due Date Last Done Comments [...] Ratio 01/28/2025 01/29/2024 CKD HGB USE SMARTSET [id number] 01/28/202501/28, 11/19/2022, 09/10/2022, Additional history exists CKD PHOS USE SMARTSET [id number] 03/31/2025 03/31/2024, 0 11/06/2022 Mammogram 04/16/2025 04/16/2024, [...] as of this encounter Visit Diagnoses Diagnosis Panic attack Panic disorder without agoraphobia DONNA (generalized anxiety disorder) Generalized anxiety disorder documented in this encounter Care Teams Book Illustrator Relationship Specialty Start Date End Date Wilda St MD [address] [place] [address] PCP - General Internal Medicine 07/31/21 documented as of this encounter
--- OUTSIDE RECORDS SUMMARY | 2024-06-30 07:04 | External Medical Summary | Summary of Care ---
Author Name Unknown Organization [facility] Address [address] [facility] [place] [address] Phone [phone] Care Team Providers Care Health Club Manager Name Role Phone Wilda St MD Primary Care Provider + Reason for Referral * Evaluate & Treat - Unlimited Visits (Within 10 days (routine)) - Authorized Specialty Diagnoses / Procedures Referred By Contlin t Referred To Contact Psychology Diagnoses DONNA (generalized anxiety disorder) Wilda St MD [address] [place] [address] Referral ID Status Reason Start Date Expiration Date Visits Requested Visits Authorized [id number] Authorized Specialty Services Required 06/23/2024 1 1 Question Answer Referral Priority Within 10 days (routine) Where should this appointment be scheduled? [facility] Reason for Referral: Depression/Anxiety/Bipolar Specific Condition? Generalized Anxiety/Worry Comments Please eval Thanks Reason for Visit * Reason Comments Follow Up Anxiety worsening, g agging and nausea Encounter Details Date Type Department Care Team (Late st Contact Info) Description 06/23/2024 8:00 AM EDT Office Visit General Internal Medicine [place] [facility] [address] [place] [address] MD [address] [place] [address] DONNA (generalized anxiety disorder)* Allergies Active Allergy Reactions Criticality Noted Date Comments Azithromycin Nausea/vomiting 09/05/2015 z-pack Cefaclor Hives 09/05/2015 Dust 09/05/2015 Mold, ragweed, pollen Erythromycin 09/05/2015 unsure Minocycline Other (Please comment) 09/05/2015 Per patient all "cyclines"; caused elevated liver enzymes, fever, eye problems Multivitamins Nausea/vomiting 09/05/2015 Penicillins Hives 09/05/2015 documented as of this encounter (statuses as of 06/23/2024) Medications Medication Sig Dispensed Refills Start Date End Date Status Cholecalciferol (VITAMIN D) 1000 UNIT Capsule Take 1 Capsule by mouth in the morning. 30 Cap 11 5 Active Pantoprazole Sodium 20 MG Oral Tablet Delayed Release (Protonix)Indica tions:Gastroesop hageal reflux disease without esophagitis Take 1 Tablet by mouth in the morning. 30 minutes before the first meal of the day. Do not crush, split or chew the tablet. 30 Tablet 5 4 Active Ondansetron HCl 4 MG Oral TabletIndication s:Nausea Take 1 Tablet by mouth every 8 hours as needed for Nausea. 30 Tablet 4 Active Additional Information Patient not taking.Reported on 06/23/2024 LORazepam 0.5 MG Oral Tablet (Ativan)Indicati ons:Panic attack Take 1 Tablet by mouth 2 times a day as needed for Anxiety. Dose increased temporarily . 30 Tablet 4 Active Sertraline HCl 25 MG Oral Tablet (Zoloft)Indicati ons:DONNA (generalized anxiety disorder) One pill at bedtime. 30 Tablet 5 4 Active busPIRone HCl 10 MG Oral Tablet (Buspar)Indicati ons:DONNA (generalized anxiety disorder) Take 1 Tablet by mouth in the morning and 1 Tablet before bedtime. 60 Tablet 3 4 Active hydrOXYzine HCl 25 MG Oral Tablet 1 Tablet. 4 06/23/20 24 Discontinued ALPRAZolam 0.5 MG Oral Tablet (xaNAX) 1 Tablet. 4 06/23/20 24 Discontinued busPIRone HCl 5 MG Oral Tablet (Buspar)Indicati ons:DONNA (generalized anxiety disorder) Take 1 Tablet by mouth in the morning and 1 Tablet at noon and 1 Tablet before bedtime. 90 Tablet 2 4 06/23/20 24 Discontinued(Med ication/Dose Changed) documented as of this encounter (statuses as of 06/23/2024) Active Problems Problem Noted Date Diagnosed Date Chronic kidney disease, stage 3a 05/14/2021 Overview: Per CKD protocol Iron deficiency anemia 01/18/2020 Hyperthyroidism 03/17/2018 Autoimmune thyroiditis 09/05/2015 documented as of this encounter (statuses as of 06/23/2024) Immunizations Name Administration Dates Next Due COVID-19 mRNA, LNP-s, No Pre serve, 2-Dose Series (NiteTables) 01/26/2021,01/05/2021 COVID-19, LNP-s, No Preserve , Ben-sucrose, [...] on file documented as of this encounter Last Filed Vital Signs Vital Sign Reading Time Taken Comments Blood Pressure 112/80 06/23/2024 8:15 AM EDT Pulse 76 06/23/2024 8:15 AM EDT Temperature 36.8 C (98.3 F) 06/23/2024 8:15 AM ED T Respiratory Rate 16 06/23/2024 8:15 AM EDT Oxygen Saturation - - Inhaled Oxygen Concentration - - Weight 50.2 kg (110 lb 9.6 oz) 06/23/2024 8:15 A M EDT Height 161.3 cm (5' 3.5") 06/23/2024 8:15 AM EDT Body Mass Index 19.28 06/23/2024 8:15 AM EDT documented in this encounter Progress Notes * Wilda St MD - 06/23/2024 8:33 AM EDT Images from the original note were not included. History of Present Illness Bonnie Li is a 49 year old female that presents for Follow Up (Anxiety worsening, gagging and nausea ) Patient is here for the acute visit as she has been having significant anxiety lately. She has beentaking lorazepam as needed and BuSpar every day. Reviewed both ER visits, imaging, visit note with Dr. Mira her. Discussed increasing the dose of Buspar and start Zoloft low dose and switch lorazepam to only as needed. Reviewed MRI L spine- Mild degenerative changes. MRI C spine Moderate Rt foraminal narrowing, degenerative changes. Labs in ER overall stable with TSH around 3.9. Denies any chestpain/sob/palpitation/swealling in the legs. Some sadness but no major depression. Physical Exam Vitals: 06/23/24 0815 Temp: 36.8 C (98.3 F) Pulse: 76 Resp: 16 BP: 112/80 BMI: 19.28 BP Readings from Last 3 Encounters: 06/23/24 112/80 05/28/24 144/90 05/25/24 142/88 Wt Readings from Last 3 Encounters: 06/23/24 50.2 kg (110 lb 9.6 oz) 05/28/24 50.7 kg (111 lb 11.2 oz) 05/25/24 51.3 kg (113 lb 1.6 oz) BMI Readings from Last 3 Encounters: 06/23/24 19.28 kg/m 05/28/24 19.48 kg/m 05/25/24 19.72 kg/m Ht Readings from Last 3 Encounters: 06/23/24 1.613 m (5' 3.5") 05/28/24 1.613 m (5' 3.5") 03/31/24 1.613 m (5' 3.5") Lungs clear Heart s1 s2 normal. Ext no edema. Mood anxiety+ No suicidal or homicidal ideation. I have reviewed the following results: TSH Assessment and Plan DONNA (generalized anxiety disorder) (Primary) - Increase Sertraline HCl 25 MG Oral Tablet (Zoloft); One pill at bedtime. - Increase busPIRone HCl 10 MG Oral Tablet (Buspar); Take 1 Tablet by mouth in the morning and 1 Tablet before bedtime. Discussed therapy/ counselling. Continue PT/ chiropractor for neck and shoulder pain. ER if any emergencies. Follow-up: Return in about 1 month (around 07/24/2024). | Check-out note: Please cancel with Dr. Meyers and schedule with me next visit. 20 min is okay. Wrap-Up Time: I spent a total of 30 min on the date of service in preparation, delivery, and documentation of thecare provided to Bonnie Li excluding any time spent in the performance of separately billed services. documented in this encounter Nursing Notes * Michelle Christiansen LPN - 06/23/2024 8:15 AM EDT The patient has been properly identified by confirmation of name and date of . Chief Complaint Patient presents with Follow Up Anxiety worsening, gagging and nausea documented in this encounter Plan of Treatment Upcoming Encounters Date Type Department Care Team (Late st Contact Info) Description 07/27/2024 2:40 PM EDT Office Visit General Internal Medicine [facility] [address] [place] [address] MD [address] [place] [address] 09/23/2024 9:20 AM EST Office Visit General Internal Medicine [facility] [address] [place] [address] MD [address] [facility] [place] [address] Scheduled Referrals Name Type Priority Associated Diagnoses Orde r Schedule ADULT/PEDS PSYCHOLOGY REFERRAL OP Referral Within 10 days (routine) DONNA (generalized anxiety disorder) Ordered: 06/23/2024 Health Maintenance Due Date Last Done Comments [...] Ratio 01/28/2025 01/29/2024 CKD HGB USE SMARTSET 42306 01/28/202501/28, 11/19/2022, 09/10/2022, Additional history exists CKD PHOS USE SMARTSET [id number] 03/31/2025 03/31/2024, 0 11/06/2022 Mammogram 04/16/2025 04/16/2024, [...] as of this encounter Visit Diagnoses Diagnosis DONNA (generalized anxiety disorder)- Primary Generalized anxiety disorder documented in this encounter Care Teams Health Club Manager Relationship Specialty Start Date End Date Wilda St MD [address] [place] [address] PCP - General Internal Medicine 07/31/21 documented as of this encounter
--- OUTSIDE RECORDS SUMMARY | 2024-06-30 07:04 | External Medical Summary | Summary of Care ---
Author Name Unknown Organization [facility] Address [address] [place] [address] Phone [phone] Care Team Providers Care Organ Assembler Name Role Phone Wilda St MD Primary Care Provider + Reason for Visit * Reason Onset Date Comments Advice 05/31/2024 Encounter Details Date Type Department Care Team (Late st Contact Info) Description 05/31/2024 Telephone General Internal Medicine [facility] [address] [place] [address] MD [address] [place] [address] Advice Allergies Active Allergy Reactions Criticality Noted [...] mRNA, LNP-s, No Pre serve, 2-Dose Series (Pixtr) 01/26/2021,01/05/2021 COVID-19, LNP-s, No Preserve , Ben-sucrose, [...] encounter Miscellaneous Notes * Telephone Encounter - Annita Rock OSA [...] Drug Monitoring Program in compliance with the [facility] regulations before prescribing a controlled substance. [...] were any complications Caller was transferred to [facility] at the nurse line. documented in this encounter Plan of Treatment Upcoming Encounters Date Type Department Care Team (Late st Contact Info) Description 07/22/2024 6:00 PM EDT Office Visit General Internal Medicine [facility] [place] [address] [facility] [place] [address] Dasia Meyers MD [address] [facility] [place] [address] 09/23/2024 9:20 AM EST Office Visit General Internal Medicine [facility] [place] [address] [facility] [place] [address] MD [address] [facility] [place] [address] Health Maintenance Due Date Last Done Comments [...] Ratio 01/28/2025 01/29/2024 CKD HGB USE SMARTSET 76274 01/28/202501/28, 11/19/2022, 09/10/2022, Additional history exists CKD PHOS USE SMARTSET 79184 03/31/2025 03/31/2024, 0 11/06/2022 Mammogram 04/16/2025 04/16/2024, [...] agoraphobia documented in this encounter Care Teams Organ Assembler Relationship Specialty Start Date End Date Wilda St MD [address] [place] [address] PCP - General Internal Medicine 07/31/21 documented as of this encounter
--- OUTSIDE RECORDS SUMMARY | 2024-06-30 07:04 | External Medical Summary | Summary of Care ---
Author Name Unknown Organization [facility] Address [address] [facility] [address] Phone [phone] Care Team Providers Care Tailercpa Name Role Phone Wilda St MD Primary Care Provider + Reason for Visit * Reason Onset Date Comments Advice 06/16/2024 medication Encounter Details Date Type Department Care Team (Late st Contact Info) Description 06/16/2024 Telephone General Internal Medicine [facility] [address] [facility] [place] [address] MD [address] [place] [address] Advice (medication) Allergies Active Allergy Reactions Criticality Noted Date Comments Azithromycin Nausea/vomiting 09/05/2015 z-pack Cefaclor Hives 09/05/2015 Dust 09/05/2015 Mold, ragweed, pollen Erythromycin 09/05/2015 unsure Minocycline Other (Please comment) 09/05/2015 Per patient all "cyclines"; caused elevated liver enzymes, fever, eye problems Multivitamins Nausea/vomiting 09/05/2015 Penicillins Hives 09/05/2015 documented as of this encounter (statuses as of 06/18/2024) Medications Medication Sig Dispensed Refills Start Date End Date Status Cholecalciferol (VITAMIN D) 1000 UNIT Capsule Take 1 Capsule by mouth in the morning. 30 Cap 11 09/05/2015 Active hydrOXYzine HCl 25 MG Oral Tablet 1 Tablet. 05/26/2024 Active ALPRAZolam 0.5 MG Oral Tablet (xaNAX) 1 Tablet. 05/05/2024 Active Pantoprazole Sodium 20 MG Oral Tablet [...] increased temporarily . 30 Tablet 06/15/2024 Active busPIRone HCl 5 MG Oral Tablet (Buspar)Indicatio ns:DONNA (generalized anxiety disorder) Take 1 Tablet by mouth in the morning and 1 Tablet at noon and 1 Tablet before bedtime. 90 Tablet 2 06/18/2024 Active busPIRone HCl 5 MG Oral Tablet (Buspar)Indicatio ns:DONNA (generalized anxiety disorder) Take 1 Tablet by mouth in the morning and 1 Tablet before bedtime. 60 Tablet 3 05/28/2024 4 Discontinue d(Refill) documented as of this encounter (statuses as of 06/18/2024) Active Problems Problem Noted Date Diagnosed Date Chronic kidney disease, stage 3a 05/14/2021 Overview: Per CKD protocol Iron deficiency anemia 01/18/2020 Hyperthyroidism 03/17/2018 Autoimmune thyroiditis 09/05/2015 documented as of this encounter (statuses as of 06/18/2024) Immunizations Name Administration Dates Next Due COVID-19 mRNA, LNP-s, No Pre serve, 2-Dose Series (Pfizer) 01/26/2021,01/05/2021 COVID-19, LNP-s, No Preserve , Ben-sucrose, [...] encounter Miscellaneous Notes * Telephone Encounter - Kelly Nagel LPN - 06/16/2024 8:05 AM EDT Spoke with patient. She is need of a new script for the Buspar 5mg since it was increased to 3x daily on 05/[address] Meyers. The pharmacy won't refill the script (too early with the directions saying twice daily) Pended 3x daily. * Telephone Encounter - Alida Nuno OSA - 06/16/2024 8:02 AM EDT Reason for patient's call: pt asking to speak to nurse ONLY regarding Rx refill for different dose for medication. Caller was transferred to Kelly at the nurse line. documented in this encounter Plan of Treatment Upcoming Encounters Date Type Department Care Team (Late st Contact Info) Description 06/23/2024 8:00 AM EDT Office Visit General Internal Medicine [facility] [address] [place] [address] MD [address] [facility] [place] [address] 07/22/2024 6:00 PM EDT Office Visit General Internal Medicine [facility] [address] [facility] [place] [address] Monik Meyers MD [address] [facility] [place] [address] 09/23/2024 9:20 AM EST Office Visit General Internal Medicine [facility] [address] [place] [address] MD [address] [facility] [place] [place] [address] Health Maintenance Due Date Last Done Comments [...] Ratio 01/28/2025 01/29/2024 CKD HGB USE SMARTSET 13563 01/28/202501/28, 11/19/2022, 09/10/2022, Additional history exists CKD PHOS USE SMARTSET 87365 03/31/2025 03/31/2024, 0 11/06/2022 Mammogram 04/16/2025 04/16/2024, [...] encounter Visit Diagnoses Diagnosis DONNA (generalized anxiety disorder) Generalized anxiety disorder documented in this encounter Care Teams Tailercpa Relationship Specialty Start Date End Date Wilda St MD [address] [place] [address] PCP - General Internal Medicine 07/31/21 documented as of this encounter
[2024-06-30] MEDS: PANTOprazole 40 MG TAB PO SCH (08:29)
[2024-06-30] MEDS: CHOLECALCIFEROL 25 MCG (1000 UNITS) TAB PO SCH (09:07)
[2024-06-30] MEDS: IBUPROFEN 600 MG TAB PO PRN (09:41)
[2024-06-30] MEDS: clonazePAM 0.5 MG TAB PO SCH ×2 (14:45→21:24)
[2024-06-30] MEDS: ESCITALOPRAM OXALATE 10 MG TAB PO SCH (14:48)
--- NOTE | 2024-06-30 16:38 | History & Physical ---
Date of Service June 30, 2024 Impression / Recommendations Impression Bonnie Li is a 49-year-old single, lives alone white female presents with worsening depression and increased panic symptoms in the context of recent health stressors. She was admitted on 06/29/24 19:49 on a 201 voluntary commitment for anxiety and depression. Presentation consistent with major depression, single episode and generalized anxiety disorder. Patient presents worsening depression symptoms after her injury. Presents anxious ruminations related to fear of disability and reaggravating injury. Concern for panic symptoms that are self-perpetuating due to fear of further symptoms. No past history of major depressive episode or family history of mood conditions. Labs reviewed: CBC, CMP, TSH, UDS within expected limits; UA positive for trace leukocyte esterase however patient is asymptomatic. Patient had a limited trial of sertraline and complaints of palpitations were likely related to underlying anxiety and not medication. We will retrial an SSRI; medication side effects, adverse effects were discussed with the patient and she is agreeable. Given ongoing panic symptoms we will schedule long-acting benzodiazepines. Given history of hypothyroidism and to rule out thyroid contributions to anxiety we will draw additional thyroid labs. Overall, I spent a total of 60 minutes with this case including review of chart records, nursing report, review of lab work, direct evaluation of the patient at bedside, counseling the patient, multidisciplinary team meeting, orders, and documentation in the electronic health record. 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 The patient will participate in group, recreational, and milieu therapies and will be offered additional individual and family sessions as clinically appropriate. Start escitalopram 5 mg daily Start clonazepam 0.5 mg daily and clonazepam 0.5 mg at bedtime Start trazodone 50 mg at bedtime Labs to draw: Free T4 and free T3 Inventory Assets Strengths: financial support, good insight Needs: outpatient connection, counseling Suicide Risk Level Suicide Risk Level: Moderate (q15 min suicide checks) Risk Factors Assessment Male: No : Yes Do You Have Access To A Gun?: No Health Problems: Yes Mental Health Diagnoses: Yes Substance Use Disorders: No Previous Attempt: No Family History of Suicide: No Previous Psychiatric Hospitalization: No Hopelessness: No Protective Factors Assessment Moravian Beliefs: No : No Responsible for Young Children: No Employed: Yes Stable Relationships: Yes Supportive Family: Yes Good Rapport with Provider: Yes Absence of Any Risk Factors Above: No Psychiatric History Identifying Data Bonnie Li is a 49-year-old single, lives alone white female presents with worsening depression and increased panic symptoms in the context of recent health stressors. She was admitted on 06/29/24 19:49 on a 201 voluntary commitment for anxiety and depression. Chief Complaint "Anxiety" History of Present Illness Patient reports at the end of March she found out she had a cervical bulging disk and 2 lumbar bulging disks in a dysfunctional SI joint. Was suffering from peripheral neuropathy and recommended to engage in physical therapy. She reports an improvement in pain since. Reports being unable to do chores and is somewhat related to the fear of potential reinjury. Patient has been complaining of palpitations, muscle tension, restlessness. Would often ruminate about health problems, fear of future panic symptoms, hopelessness. Complains of insomnia difficulty with onset and multiple awakenings. Reports poor appetite, low energy, poor concentration. Previously enjoyed being out in nature, walking her dog, taking a tap class however does not derive pleasure from this anymore. Reports all the symptoms started after her injury and denies a past history of depression, anxiety. She was started on BuSpar which she rates as an effective and Ativan which she rates as effective but short lived. Was tried on Zoloft 25 mg daily complained of palpitations and was discontinued. She reports a 12 pound weight loss due to appetite loss. Has motivation to get on stable medication for anxiety and get improved sleep. Complains of associated crying spells, increased irritability, racing thoughts, excess worry. She denies having a family history of psychiatric conditions. Denies a history of past periods of decreased need for sleep with elevated mood, energy and goal directed activity. She denies a history of auditory or visual hallucinations. She denies changes to cold or heat intolerance, nails, hair, skin, GI motility. Grew up outside of [place]. Reports having a stable childhood with supportive parents. Father was an ramp service agent and mother was a teacher. Has 1 older sister who is 54 years of age. Completed a masters degree in [employer]. Attended [employer] studying kinesiology and athletic training. 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 Single and not currently in a relationship. Not sexually active. No prior marriages. No children. Lives with her 2 dogs. Denies having legal problems. Does not associate with a specific latter-day group or spirituality. Denies a history of neglect or physical, sexual, emotional abuse. Denies having access to guns. [facility]; does not have an outpatient psychiatrist or therapist. Has a personal history of hyperthyroidism in remission. Reports previously exercising and stopped due to injury. Drinks 1-2 Cups of coffee a day. Denies alcohol and drug use. Past Psychiatric History Current Psychiatric Diagnosis: Anxiety Do You Have Access To A Gun?: No History of Previous Suicide Attempt: No Allergies Allergy/AdvReac Type Severity Reaction Status Date / Time cefaclor [From [facility]] Allergy Intermediate Hives Verified 02/03/24 14:12 azithromycin Allergy Mild Rash Verified 02/03/24 14:12 erythromycin base Allergy Mild Rash Verified 02/03/24 14:12 minocycline Allergy Mild Rash Verified 02/03/24 14:12 Penicillins Allergy Mild Rash Verified 02/03/24 14:12 multiple vitamin AdvReac Mild Gastrointestinal Uncoded 02/03/24 14:12 Upset contrast dye AdvReac Unknown Itching Uncoded 06/29/24 17:11 Home Medications Medication Instructions Recorded Confirmed Type cholecalciferol (vitamin D3) 25 25 mcg PO QAM 01/21/23 06/29/24 History mcg (1,000 unit) tablet (Vitamin D3) ferrous sulfate 325 mg (65 mg 325 mg PO QPM 01/21/23 06/29/24 History iron) tablet (Iron (ferrous sulfate)) ibuprofen 200 mg tablet (Advil) 200 mg PO Q6H PRN pain 05/03/24 06/29/24 History pantoprazole 40 mg tablet,delayed 40 mg PO DAILY #14 tabs 05/18/24 06/29/24 Rx release (Protonix) hydroxyzine HCl 25 mg tablet 25 mg PO Q6H PRN anxiety #10 tabs 05/26/24 06/29/24 Rx buspirone 10 mg PO TID 06/29/24 06/29/24 History lorazepam 0.5 mg tablet 0.5 mg PO BID PRN Anxiety 06/29/24 06/29/24 History Family History Family History of: None Alcohol History Hx of Alcohol Use Over the Past 12 Months: No AUDIT Total Score: 0 Smoking Use Smoking Status: Never smoker Substance History Hx of Prescription Med Misuse Over the Past 12 Months: No Hx of Over the Counter Med Misuse Over the Past 12 Months: No Hx of Inhalent Misuse Over the Past 12 Months: No Hx of Organic Substance Use Over the Past 12 Months: No Hx of Illegal Substances/Street Drug Use Over Past 12 Months: No Problems as a Result of Past Substance Use: None Identified Personal History Living Arrangements: Home Highest Grade Completed: Graduate School Highest Grade Completed Comment: Master's in Science Marital Status: Single Number Of Children: 0 Beliefs That Will Affect Care: None Patient History Medical History Anemia Temporomandibular joint disorder hx of; had a bite block but no longer uses History of anesthesia reaction had difficulty waking after wisdom tooth removal and woke up with a sweat Hyperthyroidism hx of; pt states she is no longer on medication Surgical History H/O wisdom tooth extraction Hx of tonsillectomy and adenoidectomy H/O excision of ganglion cyst x2 H/O breast biopsy fine needle on left 2006--benign Family History Mother Osteoporosis Breast cancer GERD (gastroesophageal reflux disease) Thyroid disease Grandmother (Maternal) Dementia Father Hypercholesterolemia Hypertension Thyroid disease Uncle Thyroid disease Other No family history of adverse response to anesthesia Social History Smoking Status: Never smoker Second Hand Exposure: No; Do You Dip or Chew Tobacco: No; Hx Alcohol Use: No Hx Substance Use: No Preferred Language: Yemeni Communication Ability: Effective Warehouse Puller Required: No Beliefs That Will Affect Care: None marital status: Single Current Living Situation: Alone Feels Safe at Home: Yes Gender Identity: Female Assistive Devices: Glasses Physical Exam Mental Examination: Appearance: Well Groomed Eye Contact: Fleeting Contact Motor Behavior: Restless Speech: Normal Mood: Anxious Affect: Congruent (reactive) Thought Process: Intact and Linear Thought Content: Intact Hallucinations: None Insight: Fair Judgement: Fair Vital Signs (Past 24 Hours): Last Vital Signs Temp 36.7 C 06/30/24 06:47 Pulse 99 H 06/30/24 06:48 Resp 16 06/30/24 06:47 BP 143/82 H 06/30/24 06:48 Pulse Ox 100 06/29/24 20:22 O2 Del Method Room Air 06/29/24 20:22 Exam Statement: A physical exam was performed in the ED for the purposes of medical clearance. I accept that physical as correct and adequate for the purposes of the inpatient physical exam. Results & Data ([facility]) Laboratory Results Laboratory Results - last 24 hr 06/29/24 06/29/24 16:00 Unknown WBC 5.55 RBC 4.83 Hgb 13.8 Hct 41.7 MCV 86.3 MCH 28.6 MCHC 33.1 RDW Std Deviation 36.2 L RDW Coeff of Lore 11.4 L Plt Count 228 MPV 12.6 H Immature Gran % (Auto) 0.2 Neut % (Auto) 76.9 Lymph % (Auto) 15.9 [place] % (Auto) 6.3 Eos % (Auto) 0.2 Baso % (Auto) 0.5 Neut # (Auto) 4.27 Lymph # (Auto) 0.88 L [place] # (Auto) 0.35 Eos # (Auto) 0.01 Baso # (Auto) 0.03 Immature Gran # (Auto) 0.01 Sodium 135 L Potassium 3.6 Chloride 100 Carbon Dioxide 27 Anion Gap 8 BUN 15 Creatinine 1.03 Est Cr Clr Drug Dosing 51.0 Est GFR ( Amer) 73.9 Est GFR (Non-Af Amer) 63.8 BUN/Creatinine Ratio 14.6 Glucose 131 H Calcium 9.3 Total Bilirubin 0.7 AST 17 ALT 11 Alkaline Phosphatase 46 Total Protein 7.6 Albumin 4.8 Globulin 2.8 Albumin/Globulin Ratio 1.7 TSH 1.486 Urine Color Yellow Urine Appearance Clear Urine pH 5.5 Ur Specific [place] 1.011 Urine Protein Trace H Urine Glucose (UA) Negative Urine Ketones Negative Urine Blood 3+ H Urine Nitrite Negative Urine Bilirubin Negative Urine Urobilinogen Negative Ur Leukocyte Esterase Trace H Urine WBC (Auto) 0-5 Urine RBC (Auto) >20 H U Hyaline Cast (Auto) 0-2 U Epithel Cells (Auto) 0-2 Urine Bacteria (Auto) None Seen Urine Test Negative Salicylates < 3.0 L Urine Opiates Screen Neg Ur Methadone, Qual Neg Urine Fentanyl Screen Neg Acetaminophen < 3 L Urine Barbiturates Neg Ur Phencyclidine (PCP) Neg U Amphetamin/Meth Scrn Neg MDMA (Ecstasy) Screen Neg U Benzodiazepines Scrn Neg Ur Cocaine Metabolite Neg U Marijuana (THC) Screen Neg Ethyl Alcohol mg/dL < 10.0 SARS-CoV-2, RNA, NAAT NEGATIVE Current Inpatient Medications Current Inpatient Medications: Current Inpatient Medications Acetaminophen (Acetaminophen 325 Mg Tab) 650 mg PO Q4H PRN PRN Reason: Headache or Minor Fever Stop: 07/29/24 20:13 Al Hydrox/Mg Hydrox/Simethicone (Aluminum/Magnesium Susp 30 Ml Udc) 30 ml PO Q4H PRN PRN Reason: GI Upset Stop: 07/29/24 20:13 Bismuth Subsalicylate (Bismuth Subsalicylate Liqd 236 Ml) 15 ml PO PRN PRN PRN Reason: Loose Stool Stop: 07/29/24 20:13 Buspirone HCl (Buspirone 5 Mg Tab) 10 mg PO TID TATUM Stop: 07/29/24 20:59 Last Admin: 06/30/24 14:43 Dose: 10 mg Clonazepam (Clonazepam 0.5 Mg Tab) 0.25 mg PO DAILY TATUM Stop: 07/30/24 13:44 Last Admin: 06/30/24 14:45 Dose: 0.25 mg Clonazepam (Clonazepam 0.5 Mg Tab) 0.5 mg PO HS TATUM Stop: 07/30/24 21:59 Escitalopram Oxalate (Escitalopram Oxalate 10 Mg Tab) 5 mg PO QAM TATUM Stop: 07/30/24 13:44 Last Admin: 06/30/24 14:48 Dose: 5 mg Ferrous Sulfate (Ferrous Sulfate 325 Mg Tab) 325 mg PO 1700 TATUM Stop: 07/30/24 16:59 Hydroxyzine HCl (Hydroxyzine Hcl 25 Mg Tab) 50 mg PO HSZ PRN PRN Reason: Insomnia Stop: 07/29/24 20:13 Hydroxyzine HCl (Hydroxyzine Hcl 25 Mg Tab) 25 mg PO Q4H PRN PRN Reason: Anxiety Stop: 07/29/24 20:13 Ibuprofen (Ibuprofen 600 Mg Tab) 600 mg PO Q8H PRN PRN Reason: Pain Stop: 07/30/24 09:29 Last Admin: 06/30/24 09:41 Dose: 600 mg Lorazepam (Lorazepam 1 Mg Tab) 1 mg PO BID PRN PRN Reason: Anxiety Stop: 07/29/24 20:16 Last Admin: 06/30/24 09:07 Dose: 1 mg Magnesium Hydroxide (Magnesium Hydroxide Susp 30 Ml Udc) 30 ml PO DAILY PRN PRN Reason: Constipation Stop: 07/29/24 20:13 Pantoprazole Sodium (Pantoprazole 40 Mg Tab) 40 mg PO QAM TATUM Stop: 07/30/24 08:59 Last Admin: 06/30/24 08:29 Dose: 40 mg Sodium Chloride (Sodium Chloride 0.65% Na Soln 45 Ml ([place])) 1 - 2 sprays NA PRN PRN PRN Reason: Nasal Dryness/Congestion Stop: 07/29/24 20:13 Trazodone HCl (Trazodone Hcl 50 Mg Tab) 50 mg PO [facility] Stop: 07/30/24 21:59 Vitamin D (Cholecalciferol 25 Mcg (1000 Units) Tab) 25 mcg PO QAM TATUM Stop: 07/30/24 08:59 Last Admin: 06/30/24 09:07 Dose: 25 mcg
[2024-06-30] MEDS: FERROUS SULFATE 325 MG TAB PO SCH (17:41)
[2024-06-30] MEDS: traZODone HCL 50 MG TAB PO SCH (21:22)
[2024-07-01] MEDS: clonazePAM 0.25 MG OD TAB PO ONE (12:14)
--- NOTE | 2024-07-01 17:17 | Psychiatric Progress Note ---
Date of Service July 01, 2024 Impression / Recommendations Impression Bonnie Li is a 49-year-old single, lives alone white female presents with worsening depression and increased panic symptoms in the context of recent health stressors. She was admitted on 06/29/24 19:49 on a 201 voluntary commitment for anxiety and depression. Patient is tolerating the Lexapro well. Continues to have some panic symptoms and we will optimize clonazepam after discussion with the patient. Likely patient is unable to tolerate antihistamine medication and presented a paradoxical reaction with flushing; also concern for excess orthostatic hypotension; we will discontinue trazodone. Free T4 and free T3 labs reviewed and within expected limits. Patient unlikely to be in a hyperthyroid state. Overall, I spent a total of 35 minutes with this case including review of chart records, nursing report, review of lab work, direct evaluation of the patient at bedside, counseling the patient, multidisciplinary team meeting, orders, and documentation in the electronic health record. (1) Severe single episode of major depressive disorder with anxiety: (2) Generalized anxiety disorder with panic attacks: (3) H/O hyperthyroidism: Plan 07/01/2024: Increase escitalopram to 10 mg at bedtime. Increase clonazepam to 0.5 mg daily and 0.75 mg at bedtime. Discontinue trazodone. 06/30/2024:The patient was admitted to the [facility] ([facility]) on q15 min checks (behavioral with suicide precautions) for safety. The patient will participate in group, recreational, and milieu therapies and will be offered additional individual and family sessions as clinically appropriate. Start escitalopram 5 mg daily Start clonazepam 0.5 mg daily and clonazepam 0.5 mg at bedtime Start trazodone 50 mg at bedtime Labs to draw: Free T4 and free T3 Inventory Assets Strengths: financial support, good insight Needs: outpatient connection, counseling Suicide Risk Level Suicide Risk Level: Moderate (q15 min suicide checks) Risk Factors Assessment Male: No : Yes Do You Have Access To A Gun?: No Health Problems: Yes Mental Health Diagnoses: Yes Substance Use Disorders: No Previous Attempt: No Family History of Suicide: No Previous Psychiatric Hospitalization: No Hopelessness: No Protective Factors Assessment Druze Beliefs: No : No Responsible for Young Children: No Employed: Yes Stable Relationships: Yes Supportive Family: Yes Good Rapport with Provider: Yes Absence of Any Risk Factors Above: No Interval History Identifying Information Bonnie Li is a 49-year-old single, lives alone white female presents with worsening depression and increased panic symptoms in the context of recent health stressors. She was admitted on 06/29/24 19:49 on a 201 voluntary commitment for anxiety and depression. Chief Complaint "Still anxious" Review of Systems Sleep Information Total Hours of Sleep: 6.30 Sleep Comments: HS Buspar, Klonopin and Trazadone Meal Information Percent Meal Consumed - Breakfast: 60 Percent Meal Consumed - Lunch: 95 Percent Meal Consumed - Dinner: 25 Subjective Subjective Patient was seen & assessed and interval progress reviewed with treatment team nursing and social work Overnight patient slept 6.5 hours. She reports still having some palpitations. Complains of fear more anxiety. Says at home she woke up early. Says last night she was able to get consistent amount of sleep. Reports the trazodone made her "foggy". She tolerated the Lexapro well. When she got up yesterday she felt the heavyweight cementer hand. Also felt warm and flushed. Physical Exam Mental Examination Appearance: Well Groomed Eye Contact: Fleeting Contact Motor Behavior: Restless Speech: Normal Mood: Anxious Affect: Congruent (reactive) Thought Process: Intact and Linear Thought Content: Intact Hallucinations: None Insight: Fair Judgement: Fair Vital Signs (Past 24 Hours) Last Vital Signs Temp 36.7 C 07/01/24 06:41 Pulse 81 07/01/24 06:41 Resp 16 07/01/24 06:41 BP 109/74 07/01/24 06:41 Pulse Ox 100 06/29/24 20:22 O2 Del Method Room Air 06/29/24 20:22 Results & Data ([facility]) Laboratory Results Laboratory Results - last 24 hr 07/01/24 07:39 Free T4 1.28 Free T3 3.86 Current Inpatient Medications Current Inpatient Medications: Current Inpatient Medications Acetaminophen (Acetaminophen 325 Mg Tab) 650 mg PO Q4H PRN PRN Reason: Headache or Minor Fever Stop: 07/29/24 20:13 Al Hydrox/Mg Hydrox/Simethicone (Aluminum/Magnesium Susp 30 Ml Udc) 30 ml PO Q4H PRN PRN Reason: GI Upset Stop: 07/29/24 20:13 Bismuth Subsalicylate (Bismuth Subsalicylate Liqd 236 Ml) 15 ml PO PRN PRN PRN Reason: Loose Stool Stop: 07/29/24 20:13 Buspirone HCl (Buspirone 5 Mg Tab) 10 mg PO TID TATUM Stop: 07/29/24 20:59 Last Admin: 07/01/24 15:28 Dose: 10 mg Clonazepam (Clonazepam 0.5 Mg Tab) 0.5 mg PO DAILY TATUM Stop: 08/01/24 08:59 Clonazepam (Clonazepam 0.5 Mg Tab) 0.5 mg PO HS TATUM Stop: 07/31/24 21:59 Clonazepam (Clonazepam 0.25 Mg Od Tab) 0.25 mg PO HS TATUM Stop: 07/31/24 21:59 Escitalopram Oxalate (Escitalopram Oxalate 10 Mg Tab) 5 mg PO ONCE ONE Stop: 07/01/24 22:01 Escitalopram Oxalate (Escitalopram Oxalate 10 Mg Tab) 10 mg PO HS TATUM Stop: 08/01/24 21:59 Ferrous Sulfate (Ferrous Sulfate 325 Mg Tab) 325 mg PO 1700 TATUM Stop: 07/30/24 16:59 Last Admin: 06/30/24 17:41 Dose: 325 mg Hydroxyzine HCl (Hydroxyzine Hcl 25 Mg Tab) 50 mg PO HSZ PRN PRN Reason: Insomnia Stop: 07/29/24 20:13 Hydroxyzine HCl (Hydroxyzine Hcl 25 Mg Tab) 25 mg PO Q4H PRN PRN Reason: Anxiety Stop: 07/29/24 20:13 Ibuprofen (Ibuprofen 600 Mg Tab) 600 mg PO Q8H PRN PRN Reason: Pain Stop: 07/30/24 09:29 Last Admin: 07/01/24 10:39 Dose: 600 mg Lorazepam (Lorazepam 1 Mg Tab) 1 mg PO BID PRN PRN Reason: Anxiety Stop: 07/29/24 20:16 Last Admin: 06/30/24 09:07 Dose: 1 mg Magnesium Hydroxide (Magnesium Hydroxide Susp 30 Ml Udc) 30 ml PO DAILY PRN PRN Reason: Constipation Stop: 07/29/24 20:13 Pantoprazole Sodium (Pantoprazole 40 Mg Tab) 40 mg PO QAM TATUM Stop: 07/30/24 08:59 Last Admin: 07/01/24 09:02 Dose: 40 mg Sodium Chloride (Sodium Chloride 0.65% Na Soln 45 Ml ([place])) 1 - 2 sprays NA PRN PRN PRN Reason: Nasal Dryness/Congestion Stop: 07/29/24 20:13 Vitamin D (Cholecalciferol 25 Mcg (1000 Units) Tab) 25 mcg PO QAM TATUM Stop: 07/30/24 08:59 Last Admin: 07/01/24 09:02 Dose: 25 mcg Mental Health & Subst Abuse Tx Psychiatrist Name of Psychiatrist: Abdirahman Herrera - Dr. Tucker Psychiatrist's Date Of Appointment With Psychiatric Provider: 08/10/24 - Friday Time of Appointment with Psychiatrist: 2pm Psychiatric Appointment Comment: telehealth Therapist Name of Therapist: [facility] (telehealth-instructions and intake form sent to your emai Therapist's Date of Therapist Appointment: 07/08/24 Time of Therapist Appointment: 1:00pm Therapy Appointment Comment: Please fill out the forms sent to your email prior to appt., MARS Society Reporter Name of Society Reporter: N/A Post Discharge Appointments Primary Care Physician Name Of Family Doctor/PCP: Dr. Wilda St [facility] [address] Primary Care Date of Future Appointment with PCP: 07/20/24Friday Time of Appointment with PCP: 2:00pm (arrive at 1:40PM) Provider Appointment Comment: You'll get your meds from Dr. St until you start at [facility]
[2024-07-01] MEDS: clonazePAM 0.25 MG OD TAB PO SCH (21:38)
[2024-07-01] MEDS: clonazePAM 0.5 MG TAB PO SCH (21:39)
[2024-07-01] MEDS: ESCITALOPRAM OXALATE 10 MG TAB PO ONE (21:40)
[2024-07-02 06:46] VITALS: TEMP 97.7
[2024-07-02] MEDS: clonazePAM 0.5 MG TAB PO SCH (09:00)
--- NOTE | 2024-07-02 11:57 | Discharge Summary ---
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 Was suffering from peripheral neuropathy and recommended to engage in physical therapy. She reports an improvement in pain since. Reports being unable to do chores and is somewhat related to the fear of potential reinjury. Patient has been complaining of palpitations, muscle tension, restlessness. Would often ruminate about health problems, fear of future panic symptoms, hopelessness. Complains of insomnia difficulty with onset and multiple awakenings. Reports poor appetite, low energy, poor concentration. Previously enjoyed being out in nature, walking her dog, taking a tap class however does not derive pleasure from this anymore. Reports all the symptoms started after her injury and denies a past history of depression, anxiety. She was started on BuSpar which she rates as an effective and Ativan which she rates as effective but short lived. Was tried on Zoloft 25 mg daily complained of palpitations and was discontinued. She reports a 12 pound weight loss due to appetite loss. Has motivation to get on stable medication for anxiety and get improved sleep. Complains of associated crying spells, increased irritability, racing thoughts, excess worry. She denies having a family history of psychiatric conditions. Denies a history of past periods of decreased need for sleep with elevated mood, energy and goal directed activity. She denies a history of auditory or visual hallucinations. She denies changes to cold or heat intolerance, nails, hair, skin, GI motility. Grew up outside of [place]. Reports having a stable childhood with supportive parents. Father was an baggage and mail agent and mother was a teacher. Has 1 older sister who is 54 years of age. Completed a masters degree in [employer] Attended [employer] and [employer] studying kinesiology and athletic training. 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 Single and not currently in a relationship. Not sexually active. No prior marriages. No children. Lives with her 2 dogs. Denies having legal problems. Does not associate with a specific jew group or spirituality. Denies a history of neglect or physical, sexual, emotional abuse. Denies having access to guns. [facility]; does not have an outpatient psychiatrist or therapist. Has a personal history of hyperthyroidism in remission. Reports previously exercising and stopped due to injury. Drinks 1-2 Cups of coffee a day. Denies alcohol and drug use. Physical Exam Mental Examination Appearance: Well Groomed Eye Contact: Fleeting Contact Motor Behavior: Restless Speech: Normal Mood: Anxious Affect: Congruent (reactive) Thought Process: Intact and Linear Thought Content: Intact Hallucinations: None Insight: Fair Judgement: Fair Vital Signs (Past 24 Hours) Last Vital Signs Temp 36.5 C 07/02/24 06:44 Pulse 66 07/02/24 06:45 Resp 16 07/02/24 06:44 BP 102/68 07/02/24 06:45 Pulse Ox 100 06/29/24 20:22 O2 Del Method Room Air 06/29/24 20:22 Principal Diagnosis Severe single episode of major depressive disorder with anxiety: Psychiatric Data See daily stay summary. In short, safety was maintained and the patient was cooperative with care. Medication changes included starting Escitalopram 10mg daily and Clonazepam 0.5mg QAM, and 0.75mg HS and they tolerated this well. A family session was held and safety plan was completed prior to discharge. Day of Discharge Assessment Today the patient voices readiness for discharge. They note improvement in mood and deny thoughts to harm self or others. Thoughts remain organized and they are improved from admission. There is no evidence of psychosis. They agree to take mediations as prescribed and keep follow-up appointments. They are stable for discharge to outpatient level of care. Transition of Care Transition Of Care Record: was reviewed with the patient Advance Directives Advance Directives Information Provided: Yes Advance Directives: No Mental Health Advance Directive: No Advance Directives on File: No Living Will: No Power of Site Administrator: No Advance Directives Reason:: Declines as Mental Health Visit. Risk Factors Assessment Male: No : Yes Do You Have Access To A Gun?: No Health Problems: Yes Mental Health Diagnoses: Yes Substance Use Disorders: No Previous Attempt: No Family History of Suicide: No Previous Psychiatric Hospitalization: No Hopelessness: No Protective Factors Assessment Christianity Beliefs: No : No Responsible for Young Children: No Employed: Yes Stable Relationships: Yes Supportive Family: Yes Good Rapport with Provider: Yes Absence of Any Risk Factors Above: No Discharge Data Lab Results 06/29/24 06/29/24 07/01/24 16:00 Unknown 07:39 WBC 5.55 RBC 4.83 Hgb 13.8 Hct 41.7 MCV 86.3 MCH 28.6 MCHC 33.1 RDW Std Deviation 36.2 L RDW Coeff of Lore 11.4 L Plt Count 228 MPV 12.6 H Immature Gran % (Auto) 0.2 Neut % (Auto) 76.9 Lymph % (Auto) 15.9 [place] % (Auto) 6.3 Eos % (Auto) 0.2 Baso % (Auto) 0.5 Neut # (Auto) 4.27 Lymph # (Auto) 0.88 L [place] # (Auto) 0.35 Eos # (Auto) 0.01 Baso # (Auto) 0.03 Immature Gran # (Auto) 0.01 Sodium 135 L Potassium 3.6 Chloride 100 Carbon Dioxide 27 Anion Gap 8 BUN 15 Creatinine 1.03 Est Cr Clr Drug Dosing 51.0 Est GFR ( Amer) 73.9 Est GFR (Non-Af Amer) 63.8 BUN/Creatinine Ratio 14.6 Glucose 131 H Calcium 9.3 Total Bilirubin 0.7 AST 17 ALT 11 Alkaline Phosphatase 46 Total Protein 7.6 Albumin 4.8 Globulin 2.8 Albumin/Globulin Ratio 1.7 TSH 1.486 Free T4 1.28 Free T3 3.86 Urine Color Yellow Urine Appearance Clear Urine pH 5.5 Ur Specific [place] 1.011 Urine Protein Trace H Urine Glucose (UA) Negative Urine Ketones Negative Urine Blood 3+ H Urine Nitrite Negative Urine Bilirubin Negative Urine Urobilinogen Negative Ur Leukocyte Esterase Trace H Urine WBC (Auto) 0-5 Urine RBC (Auto) >20 H U Hyaline Cast (Auto) 0-2 U Epithel Cells (Auto) 0-2 Urine Bacteria (Auto) None Seen Urine Test Negative Salicylates < 3.0 L Urine Opiates Screen Neg Ur Methadone, Qual Neg Urine Fentanyl Screen Neg Acetaminophen < 3 L Urine Barbiturates Neg Ur Phencyclidine (PCP) Neg U Amphetamin/Meth Scrn Neg MDMA (Ecstasy) Screen Neg U Benzodiazepines Scrn Neg Ur Cocaine Metabolite Neg U Marijuana (THC) Screen Neg Ethyl Alcohol mg/dL < 10.0 SARS-CoV-2, RNA, NAAT NEGATIVE Hospital Course (1) Severe single episode of major depressive disorder with anxiety: (2) Generalized anxiety disorder with panic attacks: (3) H/O hyperthyroidism: Plan 07/01/2024: Increase escitalopram to 10 mg at bedtime. Increase clonazepam to 0.5 mg daily and 0.75 mg at bedtime. Discontinue trazodone. 06/30/2024:The patient was admitted to the [facility] ([facility] mental [facility]) on q15 min checks (behavioral with suicide precautions) for safety. The patient will participate in group, recreational, and milieu therapies and will be offered additional individual and family sessions as clinically appropriate. Start escitalopram 5 mg daily Start clonazepam 0.5 mg daily and clonazepam 0.5 mg at bedtime Start trazodone 50 mg at bedtime Labs to draw: Free T4 and free T3 Mental Health & Subst Abuse Tx Psychiatrist Name of Psychiatrist: Abdirahman Herrera - Dr. Tucker Psychiatrist's Date Of Appointment With Psychiatric Provider: 08/10/24 - Friday Time of Appointment with Psychiatrist: 2pm Psychiatric Appointment Comment: telehealth Therapist Name of Therapist: [facility] (telehealth-instructions and intake form sent to your emai Therapist's Date of Therapist Appointment: 07/08/24 Time of Therapist Appointment: 1:00pm Therapy Appointment Comment: Please fill out the forms sent to your email prior to appt., MARS Rice Drier Operator Name of Rice Drier Operator: N/A Post Discharge Appointments Primary Care Physician Name Of Family Doctor/PCP: Dr. Wilda St - [facility] [address] Primary Care Date of Future Appointment with PCP: 07/20/24Friday Time of Appointment with PCP: 2:00pm (arrive at 1:40PM) Provider Appointment Comment: You'll get your meds from Dr. St until you start at [facility] Discharge Plan Discharge Items Patient Disposition: Home - Self-Care Reason For Visit: UNSPECIFIED ANXIETY Discharge Diagnosis: (1) Severe single episode of major depressive disorder with anxiety: (2) Generalized anxiety disorder with panic attacks: Condition on Discharge: Fair Activity: Resume your previous activity Non-emergency contact: Primary Care Provider, Psychiatrist and Therapist Call non-emergency contact if: you have any medication questions and your symptoms worsen Follow-up/Referrals: Wilda St MD [Primary Care Provider] - Diet: Regular Addtl Attending Provider Instructions: -Continue Escitalopram 10mg at bedtime (can be taken anytime of the day) -Continue Clonazepam 0.5mg in the morning and 0.75mg at bedtime (can reduce dose if too sedating) -Continue Buspirone -F/u with psychiatrist, therapist -Engage in mindfulness meditation -Engage in cognitive behavioral therapy, set goals with therapist -Your thyroid labs were reviewed and within normal range Pending Studies at Discharge: No Stand-Alone Forms: [facility], Smoking Cessation Medications and DC Order Prescriptions: New escitalopram oxalate 10 mg Tablet 10 mg PO HS Qty: 30 1RF clonazepam 0.5 mg tablet See Rx Instructions .ROUTE .COMPLEX Qty: 75 1RF Rx Instructions: Take 1 tablet in the morning, and 1.5 tablets at bedtime Continued ibuprofen [Advil] 200 mg tablet 200 mg PO Q6H PRN (Reason: pain) cholecalciferol (vitamin D3) [Vitamin D3] 25 mcg (1,000 unit) Tablet 25 mcg PO QAM ferrous sulfate [Iron (ferrous sulfate)] 325 mg (65 mg iron) Tablet 325 mg PO QPM pantoprazole [Protonix] 40 mg tablet,delayed release (DR/EC) 40 mg PO DAILY Qty: 14 0RF hydroxyzine HCl 25 mg tablet 25 mg PO Q6H PRN (Reason: anxiety) Qty: 10 0RF buspirone 10 mg PO TID Discontinued lorazepam 0.5 mg Tablet 0.5 mg PO BID PRN (Reason: Anxiety) Discharge Orders: Discharge Order (Routine); Ordered 07/02/24 Ordered By: Cayden Fajardo Admission Data Admit Date/Time: 06/29/24 19:49 Attending Provider: Cayden Fajardo Admit Provider: Cayden Fajardo Primary Care Provider: Wilda St C[place] [address] D/C day mgmt > 30 min Patient Type Established History Detailed Exam Detailed Medical Decision Making Moderate Complexity Diagnoses Severe single episode of major depressive disorder with anxiety F32.2; F41.8 Generalized anxiety disorder with panic attacks F41.1; F41.0 H/O hyperthyroidism Z86.39
[2024-07-02 13:43] VITALS: BP 136/86; PULSE 64
[2024-07-02] MEDS ORDERED: ESCITALOPRAM OXALATE 10 MG TAB PO SCH (22:00)
== END 2024-07-02 14:50 | disposition home or self-care (01) | DRG 881 ==
LOC: ED 15:33 → 3S 19:49